=== PATIENT | female | born 1970 | race Caucasian/White ===

== ENCOUNTER 2024-12-28 16:00 | Emergency (ER) | payer OTHER ==
[2024-12-28] MEDS: Lidocaine 2% 20 ML MDV ONE (16:14)
[2024-12-28] MEDS: Bacitracin Oint 1 GM U/D Packet TOP ONE (16:15)
== END 2024-12-28 16:36 | disposition home or self-care (01) ==
LOC: DL.ED 16:00
DX: S61.211A Laceration without foreign body of left index finger without damage to nail, initial encounter (principal); W26.0XXA Contact with knife, initial encounter; Y93.89 Activity, other specified
CPT/HCPCS: 12001; 99282; A9270-GY; J2003